=== PATIENT | male | born 1960 | race Caucasian/White ===

== ENCOUNTER 2017-12-26 11:31 | Day surgery (SDC) | payer BC ==
[2017-12-26] MEDS ORDERED: LIDOCAINE 1% W/EPI 1:200,000 MPF 30ML SQ ONE (11:32)
--- NOTE | 2017-12-27 05:44 | Operative Note ---
DATE OF SURGERY: 12/26/2017 PREOPERATIVE DIAGNOSIS: PAINFUL RECURRENT GANGLION, RIGHT INDEX FINGER. POSTOPERATIVE DIAGNOSIS: PAINFUL RECURRENT GANGLION, RING INDEX FINGER. PROCEDURE: EXCISION GANGLION, RIGHT INDEX FINGER. STAFF SURGEON: MONIKA RECINOS M.D. ANESTHESIA: LOCAL. PREPARATION: CHLORAPREP. INDIVIDUAL CONSIDERATIONS: NONE. PROCEDURE: The patient was taken to the Operating Room and placed supine on the operating table. His right arm was prepped and draped in the usual fashion. The patient had a digital block of the index finger with 1% Lidocaine with Epinephrine. A digital tourniquet was applied. He had a small ganglion over the DIP joint dorsally. A small transverse incision was made just through the skin and then careful dissection carried over the top of what appeared to be about a 2 mm size scar ganglion over the extensor tendon sheath, this was basically removed. It was scarred so I had to remove it in pieces. After irrigation, the skin was approximated with 4-0 nylon and a small sterile Bulkee dressing was applied and he was taken back to Recovery in good condition. There were no complications. JOB NUMBER: [id number] [facility]
== END 2017-12-26 14:03 | disposition home or self-care (01) ==
LOC: SUR 11:31
PROVIDERS: ATTEND Orthopaedic Surgery
DX: M67.441 Ganglion, right hand (principal); I10 Essential (primary) hypertension; E11.9 Type 2 diabetes mellitus without complications; E78.00 Pure hypercholesterolemia, unspecified

== ENCOUNTER 2018-04-03 14:25 | Day surgery (SDC) | payer BC ==
[2018-04-03] MEDS ORDERED: LIDOCAINE 1% W/EPI 1:200,000 MPF 30ML SQ ONE (14:26)
--- NOTE | 2018-04-04 08:50 | Operative Note ---
DATE OF SURGERY: 04/03/2018 PREOPERATIVE DIAGNOSIS: Painful neoplasm left index finger. POSTOPERATIVE DIAGNOSIS: Foreign body granuloma left index finger. OPERATION: Excision of foreign body and foreign body granuloma left index finger. Staff Surgeon: Sj Emerson MD Anesthesia: Local. Preparation: ChloraPrep. Individual Considerations: None. PROCEDURE: The patient was taken to the operating room and placed supine on the operating table. He had successful induction with digital block and his left hand was prepped and draped in the usual fashion. The patient's limb was elevated, and a digital tourniquet was applied. He had what appeared to be a palpable nodule just over the PIP joint volarly on the ulnar side. A gentle V-shaped incision was then made. Dissection carried down once through the skin and there was an obvious what appeared to be solid neoplasm with a slightly liquified core. I opened it, and there was obviously what appeared to be a wooden splinter. The surrounding granuloma was about 2-3 mm and this was removed. After irrigation, I approximated the skin with interrupted 4-0 nylon, and a sterile bulky compressive dressing was applied. He tolerated the procedure well. Needle and sponge counts were correct. Estimated blood loss was minimal. He was taken back to recovery in good condition. There were no complications. CC: Dr. Elijah BASS
== END 2018-04-03 15:34 | disposition home or self-care (01) ==
LOC: SUR 14:25
PROVIDERS: ATTEND Orthopaedic Surgery
DX: M60.242 Foreign body granuloma of soft tissue, not elsewhere classified, left hand (principal); Z18.9 Retained foreign body fragments, unspecified material; I10 Essential (primary) hypertension; E78.00 Pure hypercholesterolemia, unspecified; E11.9 Type 2 diabetes mellitus without complications

== ENCOUNTER → 2018-04-17 | Day surgery (SDC) | payer BC ==
[~2018-04-17] MED LIST: LIDOCAINE 1% W/EPI 1:200,000 MPF 30ML SQ ONE
--- NOTE | 2018-04-18 11:40 | Operative Note ---
DATE OF SURGERY: 04/17/2018 PREOPERATIVE DIAGNOSIS: Ganglion cyst, right index finger. POSTOPERATIVE DIAGNOSIS: Ganglion cyst, right index finger. OPERATION: Excision of ganglion cyst, right index finger. Staff Surgeon: Sj Emerson MD Anesthesia: Local. Preparation: Chloraprep. Individual Considerations: None. PROCEDURE: The patient was taken to the operating room and placed supine on the operating room table. His right hand was prepped and draped in the usual fashion. He had a successful induction of a digital block. A digital tourniquet was applied. He had a small incision transversely just distal to the DIP joint of the index finger. Right underneath his skin, there was an obvious ganglion cyst. There was a thickened wall around it. It measured after I drained the fluid out maybe 2-3 mm. I traced the cyst down actually to the DIP joint dorsally and I carved out all the cyst material all the way down to the joint. After irrigation, I went ahead and just approximated the skin with 4-0 nylon, simple sutures, and then placed a finger bulky dressing. He was taken back to recovery in good condition. There were no complications. SHELIA
== END | disposition home or self-care (01) ==
LOC: SUR 11:34
PROVIDERS: ATTEND Orthopaedic Surgery
DX: M67.441 Ganglion, right hand (principal)